=== PATIENT | male | born 1980 | race Caucasian/White ===

== ENCOUNTER 2016-12-21 09:18 | Emergency (ER) | payer BC ==
--- NOTE | ~2016-12-21 | CT2 ---
[facility] A Service [facility] RADIOLOGY TEXT RESULTS PATIENT: MARIELA SIMPSON LOCATION: SED : 84 UNIT #: [id number] AGE: [address]: Tereso Shah MD SEX: M ORDER DR: [id number] [place] [address] [id number] E MR#: [id number] Acc #: [id number] NAME: MARIELA SIMPSON : 1980 SEX: M STUDY DATE/TIME: 12/21/2016 10:29 UNIT: SED ROOM: STUDY DESCRIPTION: CT Abd and Pelv W Cont Attending Physician: Tereso Shah M.D. Ordering Physician: Tereso Shah M.D. MEDICAL IMAGING REPORT This report is preliminary unless electronic signature is present. EXAM CT abdomen and pelvis with contrast HISTORY Left lower quadrant abdominal pain since this morning, elevated white count. History of colitis. COMPARISON CT abdomen and pelvis 12/12/2015 FINDINGS Axial images performed through the abdomen and pelvis following IV contrast. Multiplanar reconstructed images reviewed at a workstation. Abdomen: Lung bases unremarkable. Liver, spleen, gallbladder, pancreas, kidneys and adrenal glands appear normal. No free air or free fluid. Visualized GI tract to include the appendix appears normal. Retroperitoneum unremarkable. Pelvis: The bladder and prostate appear normal. Osseous structures and extra abdominal soft tissues appear normal. IMPRESSION Normal CT abdomen and pelvis with contrast. Dictated by... Dawn Patel M.D. THIS IS AN ELECTRONICALLY VERIFIED REPORT Dawn Patel M.D. at 12/22/2016 7:28 AM MAIKEL/lila TD: 12/21/2016 13:27 [facility] A Service [facility] RADIOLOGY TEXT RESULTS PATIENT: MARIELA SIMPSON LOCATION: SED : 82 UNIT #: [id number] AGE: [address]: Tereso Shah MD SEX: M ORDER DR: JOB #: [id number] MEDICAL IMAGING REPORT Page 1 of 1
[~2016-12-21 09:18] MED LIST: ALBUTEROL17 GM; AMOXICILLIN875 MG; DULOXETINE HCL60 MG PO; KLONOPIN1 M1 PO; PREDNISONE
[2016-12-21 09:27] LABS: BASOPHIL# 0.1 X10e3 (0-0.3); BASOPHIL% 1.2 % (0-2.5); EOSINOPHIL# 0.2 X10e3 (0-0.7); EOSINOPHIL% 2.2 % (0.0-7.0); HEMOGLOBIN 14.9 gm/dL (13.0-16.0); LYMPHOCYTE% 17.3 % (17.0-45.0); MEAN CELL VOLUME 88.3 FL (83-96); MEAN CORPUSCULAR HEMOGLOBIN 29.8 PG (28-34); MEAN CORPUSCULAR HGB CONC 33.8 g/dL (30-36); MEAN PLATELET VOLUME 8.1 FL (6.5-11.5); MONOCYTE# 0.9 X10e3 (0-1.0); MONOCYTE% 7.9 % (3.0-12.0); NEUTROPHIL# 8.2 X10e3 (1.5-7.1); NEUTROPHIL% 71.4 % (40-75); PLATELET COUNT 234 X10e3 (140-420); RED BLOOD COUNT 4.99 X10e (3.90-5.60); RED CELL DISTRIBUTION WIDTH 13.5 % (11.0-15.5); WHITE BLOOD COUNT 11.4 X10e3 (4.0-10.5)
[2016-12-21 09:28] LABS: DIFF IND NO
[2016-12-21 09:48] LABS: ALBUMIN SERUM 4.2 g/dL (3.5-5.0); ALKALINE PHOSPHATASE 91 U/L (32-92); ALT (SGPT) 29 U/L (10-40); AMYLASE 31 U/L (0-46); AST (SGOT) 28 U/L (10-42); BILIRUBIN,TOTAL 0.4 mg/dL (0.2-2.0); BLOOD UREA NITROGEN 19 mg/dL (9-23); BUN/CREATININE RATIO 21.11; CALCIUM SERUM 9.2 mg/dL (8.4-10.2); CARBON DIOXIDE 22 mmol/L (22-31); CHLORIDE 105 mmol/L (100-111); CREATININE SERUM 0.9 mg/dL (0.6-1.4); GLUCOSE FASTING 119 mg/dL (70-110); LIPASE 35 U/L (22-51); POTASSIUM 3.9 mmol/L (3.5-5.1); PROTEIN TOTAL SERUM 7.1 g/dL (6.0-8.3); SODIUM 138 mmol/L (135-145)
[2016-12-21 09:53] LABS: BILIRUBIN, DIRECT <0.1 mg/dL (0.0-0.2); BILIRUBIN,INDIRECT 0.3 mg/dL (0.0-0.9)
[2016-12-21 11:40] LABS: URINE SOURCE CLEAN CATCH
[2016-12-21 11:57] LABS: URINE APPEARANCE CLEAR; URINE BILIRUBIN NEG (NEG); URINE BLOOD TRACE-INTACT (NEG); URINE COLOR YELLOW; URINE GLUCOSE NEG (NORM); URINE KETONE NEG (NEG); URINE LEUKOCYTE ESTERASE NEG (NEG); URINE NITRATE NEG (NEG); URINE PH 5.5 (5-8); URINE PROTEIN NEG (NEG); URINE UROBILINOGEN 0.2 MG/DL (NORM)
[2016-12-21 12:05] LABS: MICRO INDICATED? YES
[2016-12-21 12:27] LABS: CULTURE INDICATED? YES; URINE BACTERIA 1+ (NEG); URINE MUCUS PRESENT; URINE RBC 0-2 /[HPF] (0-2); URINE SQUAMOUS EPITHELIAL CELL OCCAS /[HPF]; URINE WBC 0-2 /[HPF] (0-5)
== END 2016-12-21 12:00 | disposition home or self-care (01) ==
LOC: SED 09:18
PROVIDERS: Emergency Medicine
DX: R10.32 Left lower quadrant pain (principal); R11.0 Nausea; F17.210 Nicotine dependence, cigarettes, uncomplicated; Z98.890 Other specified postprocedural states
CPT/HCPCS: 36415; 74177; 80048; 80076; 81003; 82150; 83690; 85025; 87086; 96374; 96375; 99284; J2270; J2405; Q9967

== ENCOUNTER 2017-02-19 08:21 | Emergency (ER) | payer BC ==
--- NOTE | ~2017-02-19 | CT71 ---
[facility] A Service of [facility] RADIOLOGY TEXT RESULTS PATIENT: MARIELA SIMPSON LOCATION: [employer] : [birth year] UNIT #: [id number] AGE: [address]: Prabhakar Arevalo MD SEX: M ORDER DR: [id number] [facility] [address] [place], [place] [address] [id number] E MR#: [id number] Acc #: [id number] NAME: MARIELA SIMPSON. : 1980 SEX: M STUDY DATE/TIME: 02/19/2017 9:54 UNIT: [employer] ROOM: STUDY DESCRIPTION: CT Head Wo Contrast Attending Physician: Prabhakar Arevalo M.D. Ordering Physician: Prabhakar Arevalo M.D. Primary Care Physician: No Primary Care Physician MEDICAL IMAGING REPORT This report is preliminary unless electronic signature is present EXAM Head CT without contrast HISTORY Head injury last weekend with headaches since over the past week. TECHNIQUE Axial images were obtained without contrast. This CT exam was performed with one or more of the following radiation dose reduction techniques: automatic exposure control, adjustment of mA and/or kV according to patient size, and iterative reconstruction. FINDINGS Ventricular size and configuration are normal. There is no evidence of acute infarct or hemorrhage. There are no extra-axial fluid collections. No mass lesion or mass effect is seen. There are no skull fractures. IMPRESSION Normal noncontrast head CT. Dictated by... Walter Del Rio M.D. THIS IS AN ELECTRONICALLY VERIFIED REPORT Walter Del Rio M.D. at 02/19/2017 4:28 PM BEBA/stoney TD: 02/19/2017 11:33 JOB #: [id number] MEDICAL IMAGING REPORT [facility] A Service [facility] RADIOLOGY TEXT RESULTS PATIENT: MARIELA SIMPSON LOCATION: [employer] : 84 UNIT #: [id number] AGE: [address]: Prabhakar Arevalo MD SEX: M ORDER DR: Page 1 of 1 COPY
== END 2017-02-19 11:07 | disposition home or self-care (01) ==
LOC: CED 08:21
DX: S06.0X9A Concussion with loss of consciousness of unspecified duration, initial encounter (principal); F17.200 Nicotine dependence, unspecified, uncomplicated; Z23 Encounter for immunization; W22.8XXA Striking against or struck by other objects, initial encounter
CPT/HCPCS: 70450; 90471; 90715; 96372; 99284; J1885